=== PATIENT | female | born 1980 | race Caucasian/White ===

== ENCOUNTER 2017-03-16 07:29 | Emergency (ER) | payer BC ==
[2017-03-16 07:41] VITALS: BP 108/64
--- NOTE | 2017-03-16 08:02 | UC ---
Throat Pain/Nasal [place] HPI - HPI Summary HPI Summary: 36 year old female with sinus pressure. Sx for at least 1 week and no worsening. No fevers. 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 LOW BLOOD PRESSURE/POSTURAL HYPOTENSION - Social History Occupation: Employed Full-time - TEACH[employer] Lives: With Family Alcohol Use: None Substance Use Type: None Smoking Status (MU): Never Smoked Tobacco - Immunization History Most Recent Influenza Vaccination: DOES NOT GET FLU SHOT Review of Systems Constitutional: Fatigue ENT: Nasal Discharge, Sinus Congestion, Sinus Pain/Tenderness Respiratory: Cough All Other Systems Reviewed And Are Negative: Yes Physical Exam Triage Information Reviewed: Yes Appearance: Well-Appearing, No Pain Distress, Well-Nourished Vital Signs: Initial Vital Signs Temp 99.7 F 03/16/17 07:37 Pulse 94 03/16/17 07:37 Resp 16 03/16/17 07:37 BP 108/64 03/16/17 07:37 Pulse Ox 100 03/16/17 07:37 Vital Signs Reviewed: Yes Eye Exam: Normal ENT Exam: Normal ENT: Positive: Hearing grossly normal, Nasal congestion, Nasal drainage, TM dull. Negative: Tonsillar swelling, Tonsillar exudate Dental Exam: Normal Neck exam: Normal Neck: Positive: 1 Respiratory Exam: Normal Cardiovascular Exam: Normal Musculoskeletal Exam: Normal Neurological Exam: Normal Psychological Exam: Normal Skin Exam: Normal Throat Pain/Nasal Course/Dx - Course Course Of Treatment: treat as viral -- claritin / flonase in AM and netti pot in PM and if Sx persist to day 10 and worsened then start antibiotics - Differential Dx/Diagnosis Differential Diagnosis/HQI/PQRI: Sinusitis Provider Diagnoses: sinusitis Discharge - Discharge Plan Condition: Good Disposition: HOME Prescriptions: Amoxicillin/Clavulanate TAB* [Augmentin TAB 875*] 875 mg PO BID #20 tab Benzonatate [TESSALON 200 MG CAP] 200 mg PO TID #20 cap Patient Education Materials: Sinusitis (ED) Referrals: Burak Salgado MD [Primary Care Provider] - 4 Days Additional Instructions: WE DISCUSSED PLEASE START THE NETTI POT OR THE [facility] SINUS RINSE FOR A FEW DAYS IN THE EVENING AND IF YOUR SYMPTOMS PERSIST OR WORSEN THEN START THE ANTIBIOTICS.
== END 2017-03-16 08:13 | disposition home or self-care (01) ==
LOC: UCCORT 07:29
DX: J32.9 Chronic sinusitis, unspecified (principal); Z98.84 Bariatric surgery status
CPT/HCPCS: 99212; G0463